=== PATIENT | female | born 1950 | race Caucasian/White ===

== ENCOUNTER 2016-10-11 12:15 | Day surgery (SDC) | payer OTHER, BC ==
[2016-10-11] MEDS ORDERED: PRISTIQ50 MG PO (12:40)
[2016-10-11] MEDS ORDERED: METFORMIN HCL750 MG PO (12:42)
[2016-10-11] MEDS ORDERED: TOPIRAMATE50 MG PO (12:44)
[2016-10-11] MEDS ORDERED: NORTRIPTYLINE H10 MG PO (12:45)
[2016-10-11] MEDS ORDERED: HYDROCODON-ACE1 EAC7 PO (12:46)
[2016-10-11] MEDS ORDERED: CENTRUM SILVER1 EAC3 PO (12:47)
[2016-10-11] MEDS ORDERED: PREMARIN VAGI42.5 GM VG (12:47)
[2016-10-11] MEDS ORDERED: VITAMIN D2000 UNI1 PO (12:48)
[2016-10-11 13:13] LABS: POINT-OF-CARE METER ID UU14174212
== END 2016-10-11 14:15 | disposition home or self-care (01) ==
LOC: PAIN 12:15 → SDC 13:00 → PAIN 14:15
PROVIDERS: Anesthesiology Pain Medicine
PROC: 3E0S3BZ Introduction of Anesthetic Agent into Epidural Space, Percutaneous Approach (ICD-10-PCS; principal; 2016-10-11)
DX: M54.16 Radiculopathy, lumbar region (principal); E11.9 Type 2 diabetes mellitus without complications; F41.1 Generalized anxiety disorder
CPT/HCPCS: 82948; J1030; J1100; J2250; J3010; S0020

== ENCOUNTER 2016-11-29 14:44 | Day surgery (SDC) | payer OTHER, BC ==
[~2016-11-29] VITALS: Ht 156.2 cm; Wt 64.9 kg
[~2016-11-29 14:44] MED LIST: CENTRUM SILVER1 EAC3 PO; HYDROCODON-ACE1 EAC7 PO; METFORMIN HCL750 MG PO; NORTRIPTYLINE H10 MG PO; PREMARIN VAGI42.5 GM VG; PRISTIQ50 MG PO; TOPIRAMATE50 MG PO; VITAMIN D2000 UNI1 PO
[2016-11-29 15:22] LABS: POINT-OF-CARE METER ID UU14174212
== END 2016-11-29 16:45 | disposition home or self-care (01) ==
LOC: PAIN 14:44 → SDC 15:15 → PAIN 15:15
PROVIDERS: Anesthesiology Pain Medicine
DX: M54.16 Radiculopathy, lumbar region (principal); M51.26 Other intervertebral disc displacement, lumbar region; F41.1 Generalized anxiety disorder; I10 Essential (primary) hypertension; M10.9 Gout, unspecified; E78.5 Hyperlipidemia, unspecified; R73.9 Hyperglycemia, unspecified
CPT/HCPCS: 82948; J1100; J2250; J3010

== ENCOUNTER 2017-01-10 09:26 | Day surgery (SDC) | payer OTHER, BC ==
[~2017-01-10] VITALS: Ht 156.2 cm; Wt 64.8 kg
[2017-01-10 10:02] LABS: POINT-OF-CARE METER ID UU14174212
== END 2017-01-10 10:55 | disposition home or self-care (01) ==
LOC: PAIN 09:26 → SDC 10:00 → PAIN 10:00
PROVIDERS: Anesthesiology Pain Medicine
PROC: 015B3ZZ Destruction of Lumbar Nerve, Percutaneous Approach (ICD-10-PCS; principal; 2017-01-10)
DX: M47.26 Other spondylosis with radiculopathy, lumbar region (principal); F41.9 Anxiety disorder, unspecified; M62.838 Other muscle spasm; M54.2 Cervicalgia; Z87.891 Personal history of nicotine dependence; E78.5 Hyperlipidemia, unspecified; I10 Essential (primary) hypertension; Z88.8 Allergy status to other drugs, medicaments and biological substances; Z88.1 Allergy status to other antibiotic agents
CPT/HCPCS: 82948; J1030; J2250; J3010; S0020

== ENCOUNTER 2017-01-17 08:11 | Day surgery (SDC) | payer OTHER, BC ==
[~2017-01-17] VITALS: Ht 156.2 cm; Wt 64.8 kg
[2017-01-17 09:03] LABS: POINT-OF-CARE METER ID UU14174212
== END 2017-01-17 10:43 | disposition home or self-care (01) ==
LOC: PAIN 08:11 → SDC 08:45 → PAIN 08:45
PROVIDERS: Anesthesiology Pain Medicine
PROC: 015B3ZZ Destruction of Lumbar Nerve, Percutaneous Approach (ICD-10-PCS; principal; 2017-01-17)
DX: M47.26 Other spondylosis with radiculopathy, lumbar region (principal); M47.27 Other spondylosis with radiculopathy, lumbosacral region; F41.9 Anxiety disorder, unspecified; M62.838 Other muscle spasm; M54.2 Cervicalgia; M54.5 Low back pain; R51 Headache; I10 Essential (primary) hypertension; E78.5 Hyperlipidemia, unspecified; Z87.891 Personal history of nicotine dependence; Z88.1 Allergy status to other antibiotic agents; Z88.8 Allergy status to other drugs, medicaments and biological substances
CPT/HCPCS: 82948; J1030; J2250; J3010; S0020

== ENCOUNTER → 2017-02-22 | Outpatient (CLI) | payer OTHER, BC ==
[~2017-02-22] VITALS: Ht 154.9 cm; Wt 64.0 kg
[2017-02-22 09:39] VITALS: BP 146/66
== END | disposition home or self-care (01) ==
LOC: IVINF 08:30
DX: M81.0 Age-related osteoporosis without current pathological fracture (principal)
CPT/HCPCS: 96365; J3489

== ENCOUNTER 2017-11-07 06:58 | Day surgery (SDC) | payer OTHER, BC ==
[~2017-11-07] VITALS: Ht 154.9 cm; Wt 64.8 kg
[~2017-11-07 06:58] MED LIST changes: +HYDROCODON-ACE1 EAC8 PO; +NASONEX17 GM BOTH NARES; +TOPAMAX50 MG PO
== END 2017-11-07 08:35 | disposition home or self-care (01) ==
LOC: PAIN 06:58 → SDC 07:30 → PAIN 08:35
PROVIDERS: Anesthesiology Pain Medicine
PROC: 015B3ZZ Destruction of Lumbar Nerve, Percutaneous Approach (ICD-10-PCS; principal; 2017-11-07)
PROC: BR161ZZ Fluoroscopy of Lumbar Facet Joint(s) using Low Osmolar Contrast (ICD-10-PCS; principal; 2017-11-07)
DX: M47.816 Spondylosis without myelopathy or radiculopathy, lumbar region (principal); M54.5 Low back pain; M10.9 Gout, unspecified; N30.10 Interstitial cystitis (chronic) without hematuria; I10 Essential (primary) hypertension; E78.5 Hyperlipidemia, unspecified; Z88.8 Allergy status to other drugs, medicaments and biological substances
CPT/HCPCS: 82948; J1030; J2250; J3010; S0020

== ENCOUNTER 2017-11-14 06:57 | Day surgery (SDC) | payer OTHER, BC ==
[~2017-11-14] VITALS: Ht 154.9 cm; Wt 64.8 kg
== END 2017-11-14 09:55 | disposition home or self-care (01) ==
LOC: PAIN 06:57 → SDC 07:30 → PAIN 09:55
PROVIDERS: Anesthesiology Pain Medicine
DX: M47.816 Spondylosis without myelopathy or radiculopathy, lumbar region (principal); M48.061 Spinal stenosis, lumbar region without neurogenic claudication; M54.16 Radiculopathy, lumbar region; M51.26 Other intervertebral disc displacement, lumbar region; M79.1 Myalgia; I10 Essential (primary) hypertension; R73.03 Prediabetes; E11.9 Type 2 diabetes mellitus without complications; Z79.891 Long term (current) use of opiate analgesic; Z79.84 Long term (current) use of oral hypoglycemic drugs
CPT/HCPCS: 82948; 93005; J1030; J1885; J2250; J3010; S0020

== ENCOUNTER 2018-03-17 11:58 | Day surgery (SDC) | payer OTHER, BC ==
[~2018-03-17] VITALS: Ht 154.9 cm; Wt 65.3 kg
[~2018-03-17 11:58] MED LIST changes: +SINGULAIR10 MG PO
== END 2018-03-17 13:50 | disposition home or self-care (01) ==
LOC: PAIN 11:58 → SDC 12:30 → PAIN 12:30
PROVIDERS: Anesthesiology Pain Medicine
PROC: BR141ZZ Fluoroscopy of Cervical Facet Joint(s) using Low Osmolar Contrast (ICD-10-PCS; principal; 2018-03-17)
PROC: 3E0T3TZ Introduction of Destructive Agent into Peripheral Nerves and Plexi, Percutaneous Approach (ICD-10-PCS; principal; 2018-03-17)
DX: M47.812 Spondylosis without myelopathy or radiculopathy, cervical region (principal); I10 Essential (primary) hypertension; E78.5 Hyperlipidemia, unspecified; Z88.1 Allergy status to other antibiotic agents; Z88.8 Allergy status to other drugs, medicaments and biological substances
CPT/HCPCS: 82948; J1030; J2250; S0020

== ENCOUNTER 2018-03-25 07:34 | Day surgery (SDC) | payer OTHER, BC ==
[~2018-03-25] VITALS: Ht 154.9 cm; Wt 65.3 kg
== END 2018-03-25 09:17 | disposition home or self-care (01) ==
LOC: PAIN 07:34 → SDC 08:00 → PAIN 08:00
PROVIDERS: Anesthesiology Pain Medicine
DX: M47.812 Spondylosis without myelopathy or radiculopathy, cervical region (principal); M62.838 Other muscle spasm; M54.2 Cervicalgia; Z87.891 Personal history of nicotine dependence; Z88.1 Allergy status to other antibiotic agents; Z88.8 Allergy status to other drugs, medicaments and biological substances
CPT/HCPCS: 82948; J1030; J2250; S0020